=== PATIENT | male | born 1955 | race Two or more races ===

== ENCOUNTER 2018-05-11 13:37 | Inpatient (IN) ==
--- NOTE | 2018-05-11 13:52 | ED ---
HPI General Chief complaint: Fall Stated complaint: Fall Time Seen by Provider: 05/11/18 13:38 History of Present Illness HPI narrative: 62-year-old male presents via EMS for evaluation after a fall. The patient reportedly was standing on a roof when his feet became wrapped in plastic and he fell off of the roof, landing on his back. He remembers falling but there was loss of consciousness afterwards. He reports that he was 20 feet high. Reportedly his GCS was 14 when the fire department arrived however it was 15 when paramedics arrived. The patient is complaining of mild pain in his left lower back. He is otherwise asymptomatic. He denies headache, neck pain, dizziness, nausea, vomiting, chest pain, shortness of breath, abdominal pain, neck pain, pain in the extremities, numbness or tingling or weakness in extremities. Symptoms are mild, aggravated by fall. He is not on any blood thinning medications. He denies any significant past medical history. He has no other complaints at this time. Related Data Home Medications Medication Instructions Recorded Confirmed No Known Home Medications 05/11/18 05/11/18 Allergies Allergy/AdvReac Type Severity Reaction Status Date / Time No Known Allergies Allergy Verified 05/11/18 13:43 Review of Systems ROS: all other systems reviewed are negative PMFSH Medical History Medical History Patient denies medical problems (Acute) Social History Social History Substance History: No History of Abuse Second Hand Smoke Exposure: No Smoking Status: Current every day smoker Tobacco Type: Cigarettes How Often Do You Have a Drink Containing Alcohol: 4 or more times a week Recent Travel in [facility] within the Last 8 Weeks: No Recent Out of Country Travel within the Last 8 Weeks: No Immunization History Tetanus Immunization: Unsure Exam Narrative Exam Narrative: GENERAL: Pleasant well-developed well-nourished male in no acute distress answering all questions appropriately. Cervical collar in place laying on backboard. The patient was logrolled off the backboard using spinal precautions SKIN: Warm and dry. No obvious abrasions or ecchymosis noted. HEAD: Atraumatic. Normocephalic. EYES: Pupils equal and round. No scleral icterus. No injection or drainage. ENT: No nasal bleeding or discharge. Mucous membranes pink and moist. 2 tongue lacerations are noted, one is 2 cm the other is 1.5 cm in length NECK: Trachea midline. No JVD. CARDIOVASCULAR: Regular rate and rhythm. No murmur appreciated. RESPIRATORY: No accessory muscle use. Clear to auscultation. Breath sounds equal bilaterally. GASTROINTESTINAL: Abdomen soft, non-tender, nondistended. Hepatic and splenic margins not palpable. MUSCULOSKELETAL: No obvious deformities. No clubbing. No cyanosis. No edema. There is no reproducible tenderness to palpation along the cervical thoracic or lumbar midline spine. There is no chest wall crepitus. There is no tenderness to palpation of the pelvis. Normal medical records auditor strength bilaterally. NEUROLOGICAL: Awake and alert. No obvious cranial nerve deficits. Motor grossly within normal limits. Normal speech. Procedures Laceration Laceration 1: Site: other (tongue) Size (cm): 2 Description: linear Depth: simple, single layer Anesthetic used: with epi Anesthesia technique:: local infiltration Amount (mL): 2 Pre-repair:: wound explored Skin layer closed with: other (fast absorbing chromic) Size (cm): 5-0 Number of sutures:: 4 Technique:: simple, interrupted Laceration 2: Site: other (tongue) Size (cm): 1.5 Description: linear Depth: simple, single layer Anesthetic used: with epi Anesthesia technique:: local infiltration Amount (mL): 2 Pre-repair:: wound explored Skin layer closed with: other (fast absorbing chromic) Size (cm): 5-0 Number of sutures:: 2 Technique:: simple, interrupted Course Initial Documented Vital Signs Temperature 98.6 F 05/11/18 13:49 Pulse Rate 87 05/11/18 13:49 Respiratory Rate 23 05/11/18 13:49 Blood Pressure 162/93 H 05/11/18 13:49 Pulse Oximetry 95 05/11/18 13:49 Last Documented Vital Signs Temperature 98.6 F 05/11/18 13:49 Pulse Rate 87 05/11/18 13:49 Respiratory Rate 23 05/11/18 13:49 Blood Pressure 162/93 H 05/11/18 13:49 Pulse Oximetry 95 05/11/18 13:51 Medical Decision Making MDM Narrative Medical decision making narrative: 62-year-old male presents after a fall from reportedly 20 feet with only mild pain in his left lower back. No obvious deformities on examination. Given mechanism of injury, CT brain, cervical thoracic lumbar spine, thorax, abdomen and pelvis have been ordered, pelvis x- ray and chest x-ray, i-STAT's ordered. CT the brain reveals mild subarachnoid hemorrhage. Platelet count is incidentally noted to be low at 67, his other lab work is unremarkable. Chest x -ray, pelvis x-ray normal. CT imaging of the cervical spine reveals no acute abnormalities. CT of the thorax and abdomen pelvis revealed no acute abnormalities. The patient remains stable during his hospital stay. His only complaint has been mild lower back pain. At this point in time the plan is to admit him to the trauma service. The tongue lacerations were repaired with fast absorbing chromic, he verbally consented. Tetanus status updated. Medical Screen Exam Complete: Yes Emergency Medical Condition: Yes Differential Diagnosis Differential Diagnosis: Contusion, strain, fracture, sprain, retroperitoneal hematoma, spinal cord injury, concussion Lab Data Result diagrams: 05/11/18 13:50 05/11/18 13:50 Lab Results 05/11/18 05/11/18 05/11/18 Range/Units 13:50 13:50 13:50 WBC 4.8 (4.0-11.0) th/mm3 RBC 4.39 L (4.50-5.90) mil/mm3 Hgb 15.0 (13.0-17.0) gm/dL POC Hgb (Calc) 14.3 (13.0-17.0) g/dL Hct 43.2 (39.0-51.0) % POC Hct 42.0 (39-51.0) % MCV 98.3 (80.0-100.0) fL MCH 34.2 H (27.0-34.0) pg MCHC 34.8 (32.0-36.0) % RDW 12.3 (11.6-17.2) % Plt Count 67 L (150-450) th/mm3 MPV 8.8 (7.0-11.0) fL Prelim Diff (Auto) Slide review pending Neut % (Auto) 75.1 H (16.0-70.0) % Lymph % (Auto) 19.1 (9.0-44.0) % Troup % (Auto) 4.1 (0.0-8.0) % Eos % (Auto) 1.3 (0.0-4.0) % Baso % (Auto) 0.4 (0.0-2.0) % Neut # (Auto) 3.6 (1.8-7.7) th/mm3 Lymph # (Auto) 0.9 L (1.0-4.8) th/mm3 Troup # (Auto) 0.2 (0.0-0.9) th/mm3 Eos # (Auto) 0.1 (0.0-0.4) th/mm3 Baso # (Auto) 0.0 (0.0-0.2) th/mm3 WBC Differential . Diff Scan Auto diff confirmed Differential Comment . PT 10.7 (9.8-11.6) sec INR 1.1 Ratio APTT 26.9 (23.4-31.7) sec POC Sodium 143 (137-144) mmol/L Sodium 143 (136-145) meq/L POC Potassium 3.5 L (3.6-5.0) mmol/L Potassium 3.5 (3.5-5.1) meq/L POC Chloride 104 (102-111) mmol/L Chloride 109 H (98-107) meq/L Carbon Dioxide 25.4 (21.0-32.0) meq/L Anion Gap 9 (5-15) meq/L POC BUN 20 (5-21) mg/dL BUN 20 H (7-18) mg/dL Creatinine 1.07 (0.60-1.30) mg/dL POC Creatinine 0.9 (0.6-1.3) mg/dL Estimated GFR 70 L (>89) mL/min POC Glucose 144 H (68-110) mg/dL Random Glucose 144 H (74-106) mg/dL Calcium 8.6 (8.5-10.1) mg/dL Serum Alcohol Less than 3 (0-5) mg/dL Imaging Data Radiologist's impression: Abdomen/Pelvis CT 05/11/18 13:48 CONCLUSION: No acute findings in the abdomen and pelvis. Cervical Spine CT 05/11/18 13:48 CONCLUSION: No evidence of fracture. Multilevel degenerative findings. Chest CT 05/11/18 13:48 CONCLUSION: No acute findings in the chest. Chest X-Ray 05/11/18 13:48 CONCLUSION: No acute cardiopulmonary disease. Head CT 05/11/18 13:48 CONCLUSION: 1. Mild subarachnoid hemorrhage of the para midline frontal lobes bilaterally. 2. Possible 7 mm meningioma in the high right frontal region. . Lumbar Spine CT 05/11/18 13:48 CONCLUSION: 1. There is moderate thecal sac stenosis L3-4 and bilateral neural foraminal compromise at this level. 2. Neural foraminal compromise right L4-5, bilateral lateral recess compromise at this level and effacement of the anterior CSF space. Pelvis X-Ray 05/11/18 13:48 CONCLUSION: No evidence of fracture. Thoracic Spine CT 05/11/18 13:48 CONCLUSION: Degenerative changes at multiple levels with slight asymmetrical bulging discs left T9-10 without any significant compromise to the exiting nerve roots or the thecal sac. Discharge Plan Discharge Disposition Patient Disposition: 30 Still Patient Discharge Condition Condition: Stable Discharge Details Diagnosis: Traumatic subarachnoid hemorrhage, Thrombocytopenia, Laceration of tongue Physicians Team ED Provider: Mohsen Vargas ED Midlevel Provider: Aaron Brady Primary Care Provider: GILMA, Attending Provider: Paul Jade Other Providers: Carmen Feng ; Hamida Doll ; Dick Funez ; Gely Armenta ; Asif Liang ; Russel Paz ; Paul Jade ; Horacio Mars ; [employer] [facility] Discharge Interventions Interventions: Vital Signs Last Done: 05/11/18 13:49 Status ED Status: Admitted Patient
[2018-05-11 14:18] LABS: Baso % (Auto) 0.4 % (0.0-2.0); Eos # (Auto) 0.1 th/mm3 (0.0-0.4); Eos % (Auto) 1.3 % (0.0-4.0); Hematocrit 43.2 % (39.0-51.0); Lymph # (Auto) 0.9 th/mm3 (1.0-4.8); Lymph % (Auto) 19.1 % (9.0-44.0); Mean Corpuscular HGB Conc 34.8 % (32.0-36.0); Mean Corpuscular Hemoglobin 34.2 pg (27.0-34.0); Mean Corpuscular Volume 98.3 fL (80.0-100.0); Mean Platelet Volume 8.8 fL (7.0-11.0); Mono # (Auto) 0.2 th/mm3 (0.0-0.9); Mono % (Auto) 4.1 % (0.0-8.0); Neut # (Auto) 3.6 th/mm3 (1.8-7.7); Neut % (Auto) 75.1 % (16.0-70.0); Platelet Count 67 th/mm3 (150-450); Red Blood Count 4.39 mil/mm3 (4.50-5.90); Red Cell Distribution Width 12.3 % (11.6-17.2); White Blood Count 4.8 th/mm3 (4.0-11.0)
[2018-05-11 14:27] LABS: Activated Partial Thrombo Time 26.9 sec (23.4-31.7); INR 1.1 Ratio; Prothrombin Time 10.7 sec (9.8-11.6)
--- NOTE | 2018-05-11 14:35 | XR ---
EXAM DATE: 05/11/2018 2:31 PM EST AGE/SEX: 62 years / Male INDICATIONS: Pelvic pain after fall off of roof. CLINICAL DATA: This is the patient's initial encounter. Patient reports that signs and symptoms have been present for 1 day and indicates a pain score of 6/10. MEDICAL/SURGICAL HISTORY: None. None. COMPARISON: No prior exams available for comparison. FINDINGS: Single AP view the pelvis. Bone alignment within normal limits. No evidence of fracture. Hips within normal limits. CONCLUSION: No evidence of fracture. Electronically signed by: Glen Powers MD 05/11/2018 2:34 PM EST
[2018-05-11 14:37] LABS: Anion Gap 9 meq/L (5-15); Blood Urea Nitrogen 20 mg/dL (7-18); Calcium 8.6 mg/dL (8.5-10.1); Carbon Dioxide 25.4 meq/L (21.0-32.0); Chloride 109 meq/L (98-107); Glomerular Filtration Rate 70 mL/min (>89); Glucose,Random 144 mg/dL (74-106); Potassium 3.5 meq/L (3.5-5.1); Sodium 143 meq/L (136-145)
--- NOTE | 2018-05-11 14:38 | XR ---
EXAM DATE: 05/11/2018 2:33 PM EST AGE/SEX: 62 years / Male INDICATIONS: Chest and back pain after fall off of roof. CLINICAL DATA: This is the patient's initial encounter. Patient reports that signs and symptoms have been present for 1 day and indicates a pain score of 6/10. MEDICAL/SURGICAL HISTORY: None. None. COMPARISON: No prior exams available for comparison. FINDINGS: The lungs are clear without infiltrate, nodule, or mass. There is no appreciable pleural effusion for technique. Heart and mediastinum are unremarkable. CONCLUSION: No acute cardiopulmonary disease. Electronically signed by: Rachell Christopher MD 05/11/2018 2:36 PM EST
--- NOTE | 2018-05-11 14:40 | CT ---
EXAM DATE: 05/11/2018 2:32 PM EST AGE/SEX: 62 years / Male INDICATIONS: Fell off roof. Back pain. CLINICAL DATA: This is the patient's initial encounter. Patient reports that signs and symptoms have been present for 1 day and indicates a pain score of 5/10. MEDICAL/SURGICAL HISTORY: None. None. RADIATION DOSE: 46.25 CTDI (mGy) COMPARISON: No prior exams available for comparison. TECHNIQUE: CT of the head without contrast. Using automated exposure control and adjustment of the mA and/or kV according to patient size, radiation dose was kept as low as reasonably achievable to ob tain optimal diagnostic quality images. DICOM format image data is available electronically for revi ew and comparison. FINDINGS: Cerebrum: Small linear areas of hyperdensity in the para midline frontal regions bilaterally indicat ing minimal subarachnoid hemorrhage. No evidence of mass effect or midline shift. 7 mm rounded extra- axial hyperdensity in the high right frontal region. No evidence of acute infarct. Posterior Fossa: The cerebellum and brainstem are intact. The 4th ventricle is midline. The cerebe llopontine angle is unremarkable. Extracranial: Moderate partial opacification of the ethmoid sinuses. Skull: The calvaria is intact. No evidence of skull fracture. CONCLUSION: 1. Mild subarachnoid hemorrhage of the para midline frontal lobes bilaterally. 2. Possible 7 mm meningioma in the high right frontal region. . Electronically signed by: Glen Powers MD 05/11/2018 2:39 PM EST
--- NOTE | 2018-05-11 14:53 | CT ---
EXAM DATE: 05/11/2018 2:43 PM EST AGE/SEX: 62 years / Male INDICATIONS: Fell off roof. Back pain. CLINICAL DATA: This is the patient's initial encounter. Patient reports that signs and symptoms have been present for 1 day and indicates a pain score of 5/10. MEDICAL/SURGICAL HISTORY: None. None. RADIATION DOSE: 19.26 CTDI (mGy) COMPARISON: No prior exams available for comparison. TECHNIQUE: Contiguous axial images were obtained using helical multirow detector technique. The vol umetric data was post-processed with multiplanar reconstruction in oblique axial, sagittal, and coron al planes. Using automated exposure control and adjustment of the mA and/or kV according to patient s ize, radiation dose was kept as low as reasonably achievable to obtain optimal diagnostic quality osbaldo ges. DICOM format image data is available electronically for review and comparison. FINDINGS: Vertebrae: Normal vertebral body height. Alignment: Normal. No subluxation. C2-3: The bony spinal canal is normal in size. No evidence of disc bulge or herniation. The neural foramina are bilaterally patent. C3-4: Bilateral facet arthrosis. Broad-based disc bulge. Central canal diameter within normal limits . Neural foraminal diameters within normal limits. C4-5: Broad-based disc bulge and bilateral facet arthrosis. Central canal diameter within normal blas its. Neural foraminal diameters within normal limits. C5-6: Broad-based disc bulge and bilateral facet arthrosis. Mild left neural foraminal narrowing. Ce ntral canal diameter is minimally narrowed. C6-7: Broad-based disc osteophyte complex. Moderate left neural foraminal narrowing. Central canal d iameter within normal limits. C7-T1: Central canal diameter within normal limits. Neural foraminal diameters within normal limits. CONCLUSION: No evidence of fracture. Multilevel degenerative findings. Electronically signed by: Glen Powers MD 05/11/2018 2:51 PM EST
--- NOTE | 2018-05-11 15:04 | CT ---
EXAM DATE: 05/11/2018 2:46 PM EST AGE/SEX: 62 years / Male INDICATIONS: Fell off roof. Back pain. CLINICAL DATA: This is the patient's initial encounter. Patient reports that signs and symptoms have been present for 1 day and indicates a pain score of 5/10. MEDICAL/SURGICAL HISTORY: None. None. ORAL CONTRAST: No oral contrast ingested. RADIATION DOSE: 10.21 CTDI (mGy) ; Combined studies COMPARISON: No prior exams available for comparison. TECHNIQUE: Multiple contiguous axial images were obtained through the abdomen and pelvis following b olus infusion of 94 ml Visipaque 320 (iodixanol) nonionic water-soluble contrast as a cumulative do se for multiple exams. No oral contrast ingested. Using automated exposure control and adjustment of the mA and/or kV according to patient size, radiation dose was kept as low as reasonably achievable to obtain optimal diagnostic quality images. DICOM format image data is available electronically for review and comparison. FINDINGS: Lower Lungs: Mild atelectasis at the lung bases. Liver: Moderate diffuse hypodensity of the liver indicating hepatic steatosis. No focal mass identifi ed. Gallbladder within normal limits. Spleen: Homogeneous density without enlargement. Pancreas: Unremarkable without mass or calcification. Kidneys: 3 mm nonobstructing calculus in the midpole the right kidney. 3 mm calculus in the upper po le of the right kidney. 1.4 cm cyst extending laterally off of the lower pole of the left kidney. Adrenal Glands: Unremarkable. Aorta: Diffuse atherosclerotic disease and calcification. Diameter within normal limits. Bowel/Mesentery: No evidence of bowel dilatation. No free air or free fluid. Appendix within normal limits. Abdominal Wall: Intact. Retroperitoneum: No evidence of adenopathy in the retrocrural, para-aortic, or deep pelvic regions. Bladder: Contours are smooth. Reproductive Organs: Prostate is enlarged measuring 5.2 cm in greatest transverse dimension. Inguinal: The inguinal region is unremarkable without evidence of adenopathy. Bony Structures: Unremarkable. CONCLUSION: No acute findings in the abdomen and pelvis. Electronically signed by: Glen Powers MD 05/11/2018 3:03 PM EST
--- NOTE | 2018-05-11 15:11 | CT ---
EXAM DATE: 05/11/2018 2:52 PM EST AGE/SEX: 62 years / Male INDICATIONS: Fell off roof. Back pain. CLINICAL DATA: This is the patient's initial encounter. Patient reports that signs and symptoms have been present for 1 day and indicates a pain score of 5/10. MEDICAL/SURGICAL HISTORY: None. None. RADIATION DOSE: 10.21 CTDI (mGy) ; Combined studies COMPARISON: No prior exams available for comparison. TECHNIQUE: Multiple contiguous axial images were obtained through the chest during bolus infusion of 94 ml Visipaque 320 (iodixanol) nonionic water-soluble contrast as a cumulative dose for multiple e xams. Images were obtained in suspended respiration using multiple row detector helical technique. Using automated exposure control and adjustment of the mA and/or kV according to patient size, radia tion dose was kept as low as reasonably achievable to obtain optimal diagnostic quality images. DICO M format image data is available electronically for review and comparison. FINDINGS: Lungs: Bilateral mild dependent atelectasis. Lungs otherwise clear. Mediastinum: Aorta intact. Coronary artery calcification. Pleurae: No evidence of pleural effusion or pneumothorax. Axillae: Unremarkable. Bony Structures: Unremarkable. Miscellaneous: Upper abdomen will be fully described on abdomen CT report. Post Contrast: No abnormal areas of enhancement seen. CONCLUSION: No acute findings in the chest. Electronically signed by: Glen Powers MD 05/11/2018 3:10 PM EST
--- NOTE | 2018-05-11 15:28 | CT ---
EXAM DATE: 05/11/2018 3:13 PM EST AGE/SEX: 62 years / Male INDICATIONS: Fell off roof. Back pain. CLINICAL DATA: This is the patient's initial encounter. Patient reports that signs and symptoms have been present for 1 day and indicates a pain score of 5/10. MEDICAL/SURGICAL HISTORY: None. None. RADIATION DOSE: . CTDI (mGy) ; Reconstructed from previous dataset, no dose COMPARISON: No prior exams available for comparison. TECHNIQUE: Contiguous axial images were acquired with a multirow detector CT scanner after intraveno us administration of 94 ml Visipaque 320 (iodixanol) nonionic water-soluble contrast as a cumulative dose for multiple exams. Multiplanar reconstructions in the sagittal and coronal plane were also pe rformed. Using automated exposure control and adjustment of the mA and/or kV according to patient siz e, radiation dose was kept as low as reasonably achievable to obtain optimal diagnostic quality image s. DICOM format image data is available electronically for review and comparison. FINDINGS: No significant compression deformities, spondylolysis, or spondylolesthesis is seen. There are stones in the right kidney discussed on the CT abdomen. L1-L2: No appreciable compromise to the thecal sac, or the exiting nerve roots is seen. The neural foramina and lateral recesses are patent bilaterally. L2-L3: No appreciable compromise to the thecal sac, or the exiting nerve roots is seen. The neural foramina and lateral recesses are patent bilaterally. Slight bulging disc is present without any significant compromise to the exiting nerve roots or the t hecal sac. L3-L4: Moderate degenerative changes are present in the disc space. There is slight neural foramina compromise bilaterally due to bulging disc and hypertrophic changes. There is moderate overall thecal sac stenosis due to central disc/osteophyte complex and hypertrophic changes. Gas is seen within the disc chronic in nature. L4-5: Moderate degenerative changes are present in the disc space. There is a limbus vertebrae at th is level towards the anterior portion with osteophyte formation as well. Gas is seen within the disc chronic in nature. There is slight neural foramina compromise on the right due to asymmetrical bulging disc and hypertro phic changes. There is anterior extradural impression and effacement of the anterior CSF space due to bulging disc and hypertrophic changes, however overall no significant thecal sac stenosis is seen. There is sligh t bilateral lateral recess compromise due to bulging disc and hypertrophic changes. L5-S1: No appreciable compromise to the thecal sac, or the exiting nerve roots is seen. The neural foramina and lateral recesses are patent bilaterally. Slight bulging disc is present without any significant compromise to the exiting nerve roots or the t hecal sac. Slight bulging disc and hypertrophic changes are seen with indentation on the thecal sac and no signi ficant compromise to the thecal sac or the exiting nerve roots. CONCLUSION: 1. There is moderate thecal sac stenosis L3-4 and bilateral neural foraminal compromise at this leve l. 2. Neural foraminal compromise right L4-5, bilateral lateral recess compromise at this level and eff acement of the anterior CSF space. Electronically signed by: Rachell Christopher MD 05/11/2018 3:27 PM EST
--- NOTE | 2018-05-11 15:33 | CT ---
EXAM DATE: 05/11/2018 3:13 PM EST AGE/SEX: 62 years / Male INDICATIONS: Fell off roof. Back pain. CLINICAL DATA: This is the patient's subsequent encounter. Patient reports that signs and symptoms h ave been present for 1 day and indicates a pain score of 5/10. MEDICAL/SURGICAL HISTORY: None. None. RADIATION DOSE: . CTDI (mGy) ; Reconstructed from previous dataset, no dose COMPARISON: No prior exams available for comparison. TECHNIQUE: Contiguous axial images were acquired using a multirow detector CT scanner after intraven ous administration of 95 ml Visipaque 320 (iodixanol) nonionic water-soluble contrast as a cumulativ e dose for multiple exams. Multiplanar reconstruction in the sagittal and coronal planes was perfor med. Using automated exposure control and adjustment of the mA and/or kV according to patient size, radiation dose was kept as low as reasonably achievable to obtain optimal diagnostic quality images. DICOM format image data is available electronically for review and comparison. FINDINGS: No significant compression deformities are seen. There are stones in the right kidney discussed on th e patient's abdominal CT. Slight to moderate degenerative change is present in the disc spaces at multiple levels worse lower t horacic spine. T1-T2: No appreciable compromise to the thecal sac, spinal cord, or the exiting nerve roots are see n. The neural foramina are grossly patent bilaterally. T2-T3: No appreciable compromise to the thecal sac, spinal cord, or the exiting nerve roots are seen . The neural foramina are grossly patent bilaterally. T3-T4: No appreciable compromise to the thecal sac, spinal cord, or the exiting nerve roots are seen . The neural foramina are grossly patent bilaterally. T4-T5: No appreciable compromise to the thecal sac, spinal cord, or the exiting nerve roots are seen . The neural foramina are grossly patent bilaterally. T5-T6: No appreciable compromise to the thecal sac, spinal cord, or the exiting nerve roots are seen . The neural foramina are grossly patent bilaterally. T6-T7: No appreciable compromise to the thecal sac, spinal cord, or the exiting nerve roots are seen . The neural foramina are grossly patent bilaterally. T7-T8: No appreciable compromise to the thecal sac, spinal cord, or the exiting nerve roots are seen . The neural foramina are grossly patent bilaterally. T8-T9: No appreciable compromise to the thecal sac, spinal cord, or the exiting nerve roots are seen . The neural foramina are grossly patent bilaterally. T9-T10: No appreciable compromise to the thecal sac, spinal cord, or the exiting nerve roots are see n. The neural foramina are grossly patent bilaterally. Slight left-sided disc bulge is present with out any significant compromise to the exiting nerve roots or the thecal sac. T10-T11: No appreciable compromise to the thecal sac, spinal cord, or the exiting nerve roots are se en. The neural foramina are grossly patent bilaterally. T11-T12: No appreciable compromise to the thecal sac, spinal cord, or the exiting nerve roots are se en. The neural foramina are grossly patent bilaterally. T12-L1: No appreciable compromise to the thecal sac, spinal cord, or the exiting nerve roots are see n. The neural foramina are grossly patent bilaterally. CONCLUSION: Degenerative changes at multiple levels with slight asymmetrical bulging discs left T9-1 0 without any significant compromise to the exiting nerve roots or the thecal sac. Electronically signed by: Rachell Christopher MD 05/11/2018 3:32 PM EST
[2018-05-11] MEDS ORDERED: Acetaminophen 325 MG Tablet PO PRN (15:37)
[2018-05-11] MEDS ORDERED: Morphine Sulfate Inj 2 MG/ML Vial IV.PUSH PRN (15:45)
[2018-05-11] MEDS ORDERED: Morphine Inj 4 MG/ML Vial IV.PUSH ONE (15:46)
[2018-05-11] MEDS ORDERED: Tetanus/Diphtheria Toxoid Adult Vaccine Inj 0.5 ML Vial IM ONE (15:49)
[2018-05-11] MEDS ORDERED: Lidocaine 1%/Epinephrine 1:100,000 Inj 50 ML Vial INFILTRATN ONE (15:49)
[2018-05-11] MEDS ORDERED: levETIRAcetam 500mg/100mL Inj 100 ML IV.SIG SCH (16:00)
--- NOTE | 2018-05-11 16:42 | P.CONNS ---
History of Present Illness Service: Neurosurgery Consult date: 05/11/18 Requesting Physician: Paul Jade Reason for Consult: Trauma Primary Care Provider: UNKNOWN Chief Complaint: Status post fall, generalized pain History of Present Illness: This is a 62-year-old male brought to [facility] via EMS after a severe fall. The patient reportedly was standing on a roof when his feet became wrapped in plastic and he fell off of the roof, landing on his back. He remembers falling but there was loss of consciousness afterwards. No seizure activity reported. There was no tongue biting. There was no incontinence of stool or urine. He reports that he fell 20 feet high. His GCS was 14 when the fire department arrived however it was 15 when paramedics arrived. The patient is complaining of mild pain in his left lower back. He is otherwise asymptomatic. He denies headache, neck pain, dizziness, nausea, vomiting, chest pain, shortness of breath, abdominal pain, neck pain, pain in the extremities, numbness or tingling or weakness in extremities. his family history was reviewed and was noncontributory to this admission Review of Systems All other systems reviewed negative except as stated in HPI PMFSH - History History Provided By: Patient - Medical History Medical History: Medical History (Last Reviewed 05/11/18 @ 18:14 by Moris High MD) Patient denies medical problems - Tobacco History Second Hand Smoke Exposure: No Tobacco Use In Past 30 Days: Yes Smoking Status: Current every day smoker Tobacco Type: Cigarettes - Alcohol History How Often Do You Have a Drink Containing Alcohol: 4 or more times a week - Substance Use History Substance History: No History of Abuse - Travel History Recent Travel in the [place] Within the Last 8 Weeks: No Recent Travel Out of the Country Within the Last 8 Weeks: No - Immunization History Tetanus Immunization: Unsure Medications and Allergies Active Medications: Active Medications Acetaminophen (Tylenol) 650 mg PO Q6H PRN PRN Reason: TEMPERATURE > 102 F Hydrocodone Bitart/Acetaminophen ([place] 5/325) 1 tab PO Q4H PRN PRN Reason: Pain 1-5 Hydrocodone Bitart/Acetaminophen ([place] 7.5/325) 1 tab PO Q4H PRN PRN Reason: Pain 6-10 Al Hydroxide/Mg Hydroxide (Milk Of Magnesia Liq) 30 ml PO BID ANGELO Bacitracin (Baciguent Oint) 1 applicatio TOPICAL BID ANGELO Chlorhexidine Gluconate (Chlorhexidine 2% Cloth) 3 pack TOPICAL DAILY@0400 ANGELO Stop: 05/17/18 03:59 Chlorhexidine Gluconate (Chlorhexidine 2% Cloth) 3 pack TOPICAL DAILY@0400 PRN PRN Reason: Extra cloth needed Stop: 05/17/18 03:59 Docusate Sodium (Colace) 100 mg PO BID ANGELO Enalaprilat (Vasotec Inj) 1.25 mg IV.PUSH Q8H PRN PRN Reason: Blood pressure > 180/95 Levetiracetam 500 mg/ Sodium (Chloride) 105 mls @ 400 mls/hr IV.SIG Q12H ANGELO Morphine Sulfate (Morphine Inj) 2 mg IV.PUSH Q3H PRN PRN Reason: BREAKTHROUGH PAIN Ondansetron HCl (Zofran Inj) 4 mg IV.PUSH Q6H PRN PRN Reason: NAUSEA OR VOMITING Pantoprazole Sodium (Protonix Inj) 40 mg IV.PUSH Q24H ANGELO Sodium Chloride (Ns Flush) 2 ml IV.FLUSH PRN PRN PRN Reason: FLUSH AFTER USING IV ACCESS Sodium Chloride (Ns Flush) 2 ml IV.FLUSH UNSCH PRN PRN Reason: FLUSH AFTER USING IV ACCESS Allergies Allergy/AdvReac Type Severity Reaction Status Date / Time No Known Allergies Allergy Verified 05/11/18 13:43 Home Medications Medication Instructions Recorded Confirmed Type No Known Home Medications 05/11/18 05/11/18 History Exam Vital signs: Vital Signs 05/11/18 13:49 05/11/18 13:51 Temperature 98.6 F Pulse Rate 87 Respiratory Rate 23 Blood Pressure 162/93 H Pulse Oximetry 95 95 Intake & Output 05/10/18 05/11/18 05/11/18 18:59 06:59 18:59 Weight 68.492 kg Narrative: The patient is alert, awake. Comfortable, in no acute distress. Speech is fluent. Cranial nerve examination: pupils to be equal, round and reactive to light. Extra-ocular movements are intact. Facial motor and sensory function are normal and symmetrical. Gross hearing appears intact. Sternocleidomastoid and trapezius muscles are symmetrical. Other cranial nerves are intact. Neck is soft and supple with a good range of motion without pain. Muscle strength is normal in all muscle groups of both upper and lower extremities. Sensory examination is intact to light touch and pin prick in both the upper and lower extremities. Deep tendon reflexes are symmetrical in both upper and lower extremities. There is a bilateral plantar flexion response. Cerebellar examination is unremarkable, without deficits. Lungs are clear Heart regular rhythm is regular rate Skin warm and dry Results - Laboratory Findings CBC and BMP: 05/11/18 13:50 05/11/18 13:50 Abnormal lab findings: Abnormal Labs 05/11/18 05/11/18 13:50 13:50 RBC 4.39 L MCH 34.2 H Plt Count 67 L Neut % (Auto) 75.1 H Lymph # (Auto) 0.9 L POC Potassium 3.5 L Chloride 109 H BUN 20 H Estimated GFR 70 L POC Glucose 144 H Random Glucose 144 H Assessment and Plan - Plan I have reviewed the clinical and radiological findings Abdomen/Pelvis CT 05/11/18 13:48 CONCLUSION: No acute findings in the abdomen and pelvis. Cervical Spine CT 05/11/18 13:48 CONCLUSION: No evidence of fracture. Multilevel degenerative findings. Chest CT 05/11/18 13:48 CONCLUSION: No acute findings in the chest. Chest X-Ray 05/11/18 13:48 CONCLUSION: No acute cardiopulmonary disease. Head CT 05/11/18 13:48 CONCLUSION: 1. Mild subarachnoid hemorrhage of the para midline frontal lobes bilaterally. 2. Possible 7 mm meningioma in the high right frontal region. . Lumbar Spine CT 05/11/18 13:48 CONCLUSION: 1. There is moderate thecal sac stenosis L3-4 and bilateral neural foraminal compromise at this level. 2. Neural foraminal compromise right L4-5, bilateral lateral recess compromise at this level and effacement of the anterior CSF space. Pelvis X-Ray 05/11/18 13:48 CONCLUSION: No evidence of fracture. Thoracic Spine CT 05/11/18 13:48 CONCLUSION: Degenerative changes at multiple levels with slight asymmetrical bulging discs left T9-10 without any significant compromise to the exiting nerve roots or the thecal sac. Neuro: neuro checks in a serial fashion. Traumatic SAH. Follow up CT in AM Pulmonary: aggressive pulmonary toilette, nasotracheal suction, and breathing treatments with nebulizers. Tongue laceration. repaired in the emergency room Thrombocytopenia: Monitor and transfuse platelets as necessary Daily PT and OT Lumbar spondylosis and stenosis. non surgical management Renal: Continue to monitor closely urine output, BUN and creatinine Endocrine: Continue to Monitor serial Acu checks and SSI as needed in detail ID monitor for signs of infection Protonix for stress ulcer prophylaxis Karl hose and SCD's for DVT prophylaxis Further recommendations will be provided depending on the patient's clinical evaluation and follow up studies.
[2018-05-11] MEDS: Pantoprazole Inj 40 MG Vial IV.PUSH SCH (17:21)
[2018-05-11] MEDS: Docusate Sodium 100 MG Capsule PO SCH (20:37)
[2018-05-12] MEDS: Chlorhexidine Gluconate 2% 1 Pack (2 Cloths) TOPICAL SCH (03:44)
[2018-05-12] MEDS ORDERED: Chlorhexidine Gluconate 2% 1 Pack (2 Cloths) TOPICAL PRN (04:00)
[2018-05-12 05:11] LABS: Baso % (Auto) 0.3 % (0.0-2.0); Eos % (Auto) 0.1 % (0.0-4.0); Hematocrit 42.6 % (39.0-51.0); Lymph # (Auto) 1.1 th/mm3 (1.0-4.8); Lymph % (Auto) 13.4 % (9.0-44.0); Mean Corpuscular HGB Conc 35.3 % (32.0-36.0); Mean Corpuscular Hemoglobin 33.8 pg (27.0-34.0); Mean Corpuscular Volume 95.8 fL (80.0-100.0); Mean Platelet Volume 9.2 fL (7.0-11.0); Mono # (Auto) 0.6 th/mm3 (0.0-0.9); Mono % (Auto) 6.9 % (0.0-8.0); Neut # (Auto) 6.6 th/mm3 (1.8-7.7); Neut % (Auto) 79.3 % (16.0-70.0); Platelet Count 70 th/mm3 (150-450); Red Blood Count 4.45 mil/mm3 (4.50-5.90); Red Cell Distribution Width 12.5 % (11.6-17.2); White Blood Count 8.4 th/mm3 (4.0-11.0)
[2018-05-12 05:41] LABS: Albumin 3.4 g/dL (3.4-5.0); Anion Gap 8 meq/L (5-15); Aspartate Aminotransferase 111 U/L (15-37); Blood Urea Nitrogen 18 mg/dL (7-18); Calcium 8.4 mg/dL (8.5-10.1); Carbon Dioxide 28.2 meq/L (21.0-32.0); Chloride 106 meq/L (98-107); Glomerular Filtration Rate 75 mL/min (>89); Glucose,Random 133 mg/dL (74-106); Potassium 3.9 meq/L (3.5-5.1); Sodium 142 meq/L (136-145)
[2018-05-12 05:42] LABS: Alanine Aminotransferase 128 U/L (12-78)
[2018-05-12 05:44] LABS: Alkaline Phosphatase 106 U/L (45-117)
--- NOTE | 2018-05-12 07:58 | P.NPEVAL ---
Patient History - Record/History Review Reason for Referral: The patient is a 62 year old right handed man status post complicated mild traumatic brain injury secondary to a fall sustained on 05/11/2018. The patient fell off of a roof, landing on his back. There was positive LOC with GCS of [address] showed mild SAH bilateral frontal lobes. He is referred for baseline neurobehavioral status examination per trauma protocol to assess cognitive, behavioral and emotional aspects of the injury and to provide treatment recommendations. [facility] - History History Provided By: Patient - Medical History Medical History: Medical History (Last Reviewed 05/11/18 @ 18:14 by Moris High MD) Patient denies medical problems - Tobacco History Second Hand Smoke Exposure: No Tobacco Use In Past 30 Days: Yes Smoking Status: Current every day smoker Tobacco Type: Cigarettes - Alcohol History How Often Do You Have a Drink Containing Alcohol: 4 or more times a week - Substance Use History Substance History: No History of Abuse - Travel History Recent Travel in the [place] Within the Last 8 Weeks: No Recent Travel Out of the Country Within the Last 8 Weeks: No - Immunization History Tetanus Immunization: Unsure Medications Active Medications Acetaminophen (Tylenol) 650 mg PO Q6H PRN PRN Reason: TEMPERATURE > 102 F Hydrocodone Bitart/Acetaminophen ([place] 5/325) 1 tab PO Q4H PRN PRN Reason: Pain 1-5 Hydrocodone Bitart/Acetaminophen ([place] 7.5/325) 1 tab PO Q4H PRN PRN Reason: Pain 6-10 Last Admin: 05/12/18 03:54 Dose: 1 tab Al Hydroxide/Mg Hydroxide (Milk Of Magnmarilou Liq) 30 ml PO BID [facility] Last Admin: 05/11/18 22:43 Dose: Not Given Bacitracin (Baciguent Oint) 1 applicatio TOPICAL BID [facility] Last Admin: 05/11/18 23:50 Dose: Not Given Chlorhexidine Gluconate (Chlorhexidine 2% Cloth) 3 pack TOPICAL DAILY@0400 [facility] Stop: 05/17/18 03:59 Last Admin: 05/12/18 03:44 Dose: 3 pack Chlorhexidine Gluconate (Chlorhexidine 2% Cloth) 3 pack TOPICAL DAILY@0400 PRN PRN Reason: Extra cloth needed Stop: 05/17/18 03:59 Docusate Sodium (Colace) 100 mg PO BID [facility] Last Admin: 05/11/18 20:37 Dose: 100 mg Enalaprilat (Vasotec Inj) 1.25 mg IV.PUSH Q8H PRN PRN Reason: Blood pressure > 180/95 Last Admin: 05/11/18 18:15 Dose: 1.25 mg Levetiracetam 500 mg/ Sodium (Chloride) 105 mls @ 400 mls/hr IV.SIG Q12H ANGELO Last Infusion: 05/12/18 04:00 Dose: Infused Morphine Sulfate (Morphine Inj) 2 mg IV.PUSH Q3H PRN PRN Reason: BREAKTHROUGH PAIN Ondansetron HCl (Zofran Inj) 4 mg IV.PUSH Q6H PRN PRN Reason: NAUSEA OR VOMITING Pantoprazole Sodium (Protonix Inj) 40 mg IV.PUSH Q24H ANGELO Last Admin: 05/11/18 17:21 Dose: 40 mg Sodium Chloride (Ns Flush) 2 ml IV.FLUSH PRN PRN PRN Reason: FLUSH AFTER USING IV ACCESS Sodium Chloride (Ns Flush) 2 ml IV.FLUSH UNSCH PRN PRN Reason: FLUSH AFTER USING IV ACCESS Mental Status Assessment - Mental Status Orientation: oriented to: Self, Place, Time, Situation Mental Status: WFL: Thought processing, Language/interactions, Attention, Learning/memory, Problem-solving, Visuospatial/construction, Self-regulation, Other Absent: Hallucinations, Delusions Adjustment/Coping Assessment - Adjustment/Coping Adjustment/Coping: None: Awareness, Insight - Observation In terms of emotional functioning, the patient demonstrated normal adjustment. This patient demonstrated no signs of agitation, impulsivity or disinhibition, nor was there remarkable evidence of a formal thought disorder or psychosis. There was no evidence of depression or anxiety. Thought content was free from suicidal, homicidal or paranoid ideation, and thought processes were logical and goal-directed. The patients mood was euthymic, and his affect was stable and appropriate. The patient appears to possess adequate insight and awareness into their situation and within the limits of this brief evaluation, adequate judgment. Behavior - Behavior Treatment Engagement: Average - Observation Behaviorally, the patient demonstrated no signs of agitation, impulsivity or disinhibition. There was no remarkable evidence of a formal thought disorder or psychosis. - Goals LTG Status: Deferred STG Status: Deferred - Team Members Team Members: Neuropsychologist Diagnosis/Discharge Plan - Diagnosis (1) Mild neurocognitive disorder due to traumatic brain injury Status: Acute Impression: 62 year old male s/p complicated mild TBI 2T fall on 05/11/2018. Disinhibition Score: 14.00 Aggression Score: 14.00 Lability Score: 14.00 Agitated Behavior Total Score: 14 Maximizing Acute Care Outcome: It is recommended that the patient be monitored for emergent behavioral impulsivity as the medical condition evolves. This patients neuropathological challenges may limit rehabilitation potential going forward, and these challenges will require specialized therapeutic skills to maximize outcome. At this point in the recovery process, the patient does have cognitive capacity as the patient is able to understand a situation and its likely consequences, and he is able to manipulate information rationally. Cognitive capacity will be assessed throughout the recovery process. - Discharge Planning Anticipated Problems: Ongoing areas of concern will include behavioral impulsivity, lack of insight and judgment, which is expected to improve with time and treatment. Treatment Plan: This clinician will continue to follow with you throughout the course of this patients critical care treatment, and I will be available to meet with the patients family/support system to facilitate their understanding and the ongoing care of their family member. The goals of neuropsychological intervention shall be both educational and supportive to the family/support system as is deemed clinically appropriate. Thank you for the opportunity to assist in this patients care. Miguel Torres, Ph.D., ABPP Board Certified in Clinical Neuropsychology [place] [employer] [place] Licensed Psychologist #[id number]
[2018-05-12] MEDS: Docusate Sodium 100 MG Capsule PO SCH ×2 (09:50→20:42)
--- NOTE | 2018-05-12 10:12 | P.PNNS ---
Physical Exam Vital signs: Vital Signs 05/11/18 13:49 05/11/18 13:51 05/11/18 17:40 Temperature 98.6 F Pulse Rate 87 94 H Respiratory Rate 23 21 Blood Pressure 162/93 H 169/104 H Pulse Oximetry 95 95 99 05/11/18 18:01 05/11/18 18:02 05/11/18 18:06 Temperature 99 F Pulse Rate 94 H Respiratory Rate Blood Pressure 201/118 H 207/108 H Pulse Oximetry 95 96 05/11/18 18:19 05/11/18 18:34 05/11/18 18:49 Temperature Pulse Rate 95 H 91 H 97 H Respiratory Rate 28 H 29 H 36 H Blood Pressure 204/111 H 186/118 H 198/115 H Pulse Oximetry 96 95 96 05/11/18 19:00 05/11/18 19:04 05/11/18 19:19 Temperature Pulse Rate 100 H 85 92 H Respiratory Rate 43 H 22 32 H Blood Pressure 171/97 H 171/100 H Pulse Oximetry 99 94 L 05/11/18 19:34 05/11/18 19:39 05/11/18 19:42 Temperature Pulse Rate 92 H 92 H 87 Respiratory Rate 28 H 21 21 Blood Pressure 179/106 H 192/102 H 175/99 H Pulse Oximetry 96 93 L 95 05/11/18 20:00 05/11/18 20:14 05/11/18 20:41 Temperature 97.9 F Pulse Rate 93 H 91 H 107 H Respiratory Rate 21 20 21 Blood Pressure 168/88 H 179/103 H 138/77 Pulse Oximetry 94 L 94 L 93 L 05/11/18 21:00 05/11/18 22:00 05/11/18 23:00 Temperature Pulse Rate 102 H 94 H 97 H Respiratory Rate 21 22 21 Blood Pressure 127/74 118/70 130/70 Pulse Oximetry 93 L 96 100 05/11/18 23:12 05/11/18 23:47 05/12/18 00:00 Temperature 99.0 F Pulse Rate 90 Respiratory Rate 15 22 Blood Pressure 128/80 Pulse Oximetry 96 96 05/12/18 01:00 05/12/18 02:00 05/12/18 03:00 Temperature Pulse Rate 91 H 84 82 Respiratory Rate 22 17 17 Blood Pressure 131/77 126/78 119/84 Pulse Oximetry 96 97 98 05/12/18 04:00 05/12/18 05:00 05/12/18 06:00 Temperature 99.1 F Pulse Rate 89 79 79 Respiratory Rate 15 17 14 Blood Pressure 154/84 H 137/83 133/78 Pulse Oximetry 98 99 98 05/12/18 07:00 05/12/18 08:00 05/12/18 09:00 Temperature 99.4 F Pulse Rate 79 89 86 Respiratory Rate Blood Pressure 131/80 159/99 H 178/105 H Pulse Oximetry 98 05/12/18 09:48 Temperature Pulse Rate 89 Respiratory Rate Blood Pressure 162/82 H Pulse Oximetry Intake & Output 05/11/18 05/12/18 05/12/18 18:59 06:59 18:59 Intake Total 105 / 105 305 / 305 Output Total 500 / 500 Balance 105 / 105 -195 / -195 Weight 68.492 kg 66.2 kg Intake: IV 105 / 105 105 / 105 Keppra Inj 500 MG In NS Inj 100 105 / 105 105 / 105 ML @ 400 mls/hr IV.SIG Q12H ANGELO Rx#:[id number] Oral 200 / 200 Output: Urine 500 / 500 Other: Weight On Admission 66.2 kg Narrative: Alert, oriented, conversing well, dysarthric speech due to injury to tongue pupils equal moves all four extremities well symmetric Assessment and Plan - Plan 62 y/o male fall off second story roof Head CT 05/11/18 13:48 CONCLUSION: 1. Mild subarachnoid hemorrhage of the para midline frontal lobes bilaterally. 2. Possible 7 mm meningioma in the high right frontal region. Cervical Spine CT 05/11/18 13:48 CONCLUSION: No evidence of fracture. Multilevel degenerative findings. Lumbar Spine CT 05/11/18 13:48 CONCLUSION: 1. There is moderate thecal sac stenosis L3-4 and bilateral neural foraminal compromise at this level. 2. Neural foraminal compromise right L4-5, bilateral lateral recess compromise at this level and effacement of the anterior CSF space. Thoracic Spine CT 05/11/18 13:48 CONCLUSION: Degenerative changes at multiple levels with slight asymmetrical bulging discs left T9-10 without any significant compromise to the exiting nerve roots or the thecal sac. Neuro: neuro checks in a serial fashion. Traumatic SAH - nonoperative management. stable exam. f/u CT Brain today. Tongue laceration. repaired in the emergency room Thrombocytopenia: Monitor and transfuse platelets as necessary Daily PT and OT Lumbar spondylosis and stenosis. non surgical management Protonix for stress ulcer prophylaxis Karl hose and SCD's for DVT prophylaxis Further recommendations will be provided depending on the patient's clinical evaluation and follow up studies.
--- NOTE | 2018-05-12 10:55 | CT ---
EXAM DATE: 05/12/2018 10:47 AM EST AGE/SEX: 62 years / Male INDICATIONS: Follow up for intracranial hemorrhage. CLINICAL DATA: This is the patient's initial encounter. Patient reports that signs and symptoms have been present for 2 days and indicates a pain score of 2/10. MEDICAL/SURGICAL HISTORY: . Intracranial hemorrhage. None. RADIATION DOSE: 33.88 CTDI (mGy) COMPARISON: [facility] [place], CT HEAD W/O CONTRAST, 05/11/2018. . TECHNIQUE: CT of the head without contrast. Using automated exposure control and adjustment of the mA and/or kV according to patient size, radiation dose was kept as low as reasonably achievable to ob tain optimal diagnostic quality images. DICOM format image data is available electronically for revi ew and comparison. FINDINGS: Cerebrum: Minimal hemorrhage identified along the cortical surface of the left frontal lobe in the p arasagittal region is no longer period. Cerebral hemispheres otherwise appear unremarkable. Hyperdens e nodule in the right frontal region is stable. There are no findings characteristic of an evolving i nfarct. Posterior Fossa: The cerebellum and brainstem are intact. The 4th ventricle is midline. The cerebe llopontine angle is unremarkable. Extracranial: The visualized portion of the orbits is intact. Skull: The calvaria is intact. No evidence of skull fracture. CONCLUSION: 1. Resolution of minimal hemorrhage in the parasagittal region of the left frontal lobe. 2. Otherwise stable exam without evidence of acute infarct, edema or mass effect. . Electronically signed by: Curtis Carson MD 05/12/2018 10:54 AM EST
--- NOTE | 2018-05-12 11:44 | P.PNCC ---
Subjective Brief History: [place]: This is a 62-year old male who sustained a fall. He fell off a roof. Approximately 20 feet high. He landed on his back. Positive LOC. GCS 14, but improved to 15. INJURIES: Bilateral SAH Tongue lac (sutures) L3-4 and bilateral neural foraminal compromise Neural foraminal compromise right L4-5 bilateral lateral recess compromise L4-L5 w/ effacement of the anterior CSF space. *Meningioma (7mm) high right frontal PMHx: Smoker 24 Hour Review/Hospital Course: 05/12/2018 Patient sitting up in bed. No distress noted. Patient offers no complaints. Patient states he has pain, "just my tongue." Plan is for repeat CT brain today. Objective Vital Signs / I&O: Vital Signs 05/11/18 13:49 05/11/18 13:51 05/11/18 17:40 Temperature 98.6 F Pulse Rate 87 94 H Respiratory Rate 23 21 Blood Pressure 162/93 H 169/104 H Pulse Oximetry 95 95 99 05/11/18 18:01 05/11/18 18:02 05/11/18 18:06 Temperature 99 F Pulse Rate 94 H Respiratory Rate Blood Pressure 201/118 H 207/108 H Pulse Oximetry 95 96 05/11/18 18:19 05/11/18 18:34 05/11/18 18:49 Temperature Pulse Rate 95 H 91 H 97 H Respiratory Rate 28 H 29 H 36 H Blood Pressure 204/111 H 186/118 H 198/115 H Pulse Oximetry 96 95 96 05/11/18 19:00 05/11/18 19:04 05/11/18 19:19 Temperature Pulse Rate 100 H 85 92 H Respiratory Rate 43 H 22 32 H Blood Pressure 171/97 H 171/100 H Pulse Oximetry 99 94 L 05/11/18 19:34 05/11/18 19:39 05/11/18 19:42 Temperature Pulse Rate 92 H 92 H 87 Respiratory Rate 28 H 21 21 Blood Pressure 179/106 H 192/102 H 175/99 H Pulse Oximetry 96 93 L 95 05/11/18 20:00 05/11/18 20:14 05/11/18 20:41 Temperature 97.9 F Pulse Rate 93 H 91 H 107 H Respiratory Rate 21 20 21 Blood Pressure 168/88 H 179/103 H 138/77 Pulse Oximetry 94 L 94 L 93 L 11/08/18 21:00 05/11/18 22:00 05/11/18 23:00 Temperature Pulse Rate 102 H 94 H 97 H Respiratory Rate 21 22 21 Blood Pressure 127/74 118/70 130/70 Pulse Oximetry 93 L 96 100 05/11/18 23:12 05/11/18 23:47 05/12/18 00:00 Temperature 99.0 F Pulse Rate 90 Respiratory Rate 15 22 Blood Pressure 128/80 Pulse Oximetry 96 96 05/12/18 01:00 05/12/18 02:00 05/12/18 03:00 Temperature Pulse Rate 91 H 84 82 Respiratory Rate 22 17 17 Blood Pressure 131/77 126/78 119/84 Pulse Oximetry 96 97 98 05/12/18 04:00 05/12/18 05:00 05/12/18 06:00 Temperature 99.1 F Pulse Rate 89 79 79 Respiratory Rate 15 17 14 Blood Pressure 154/84 H 137/83 133/78 Pulse Oximetry 98 99 98 05/12/18 07:00 05/12/18 08:00 05/12/18 09:00 Temperature 99.4 F Pulse Rate 79 89 86 Respiratory Rate Blood Pressure 131/80 159/99 H 178/105 H Pulse Oximetry 98 99 05/12/18 09:48 05/12/18 10:00 Temperature Pulse Rate 89 83 Respiratory Rate Blood Pressure 162/82 H 155/80 H Pulse Oximetry 93 L Intake & Output 05/11/18 05/12/18 05/12/18 18:59 06:59 18:59 Intake Total 105 / 105 305 / 305 Output Total 500 / 500 Balance 105 / 105 -195 / -195 Weight 68.492 kg 66.2 kg Intake: IV 105 / 105 105 / 105 Keppra Inj 500 MG In NS Inj 100 105 / 105 105 / 105 ML @ 400 mls/hr IV.SIG Q12H [facility] Rx#:[id number] Oral 200 / 200 Output: Urine 500 / 500 Other: Weight On Admission 66.2 kg Result Diagrams: 05/12/18 04:26 05/12/18 04:26 Imaging: Impressions Abdomen/Pelvis CT 05/11/18 13:48 CONCLUSION: No acute findings in the abdomen and pelvis. Cervical Spine CT 05/11/18 13:48 CONCLUSION: No evidence of fracture. Multilevel degenerative findings. Chest CT 05/11/18 13:48 CONCLUSION: No acute findings in the chest. Chest X-Ray 05/11/18 13:48 CONCLUSION: No acute cardiopulmonary disease. Head CT 05/11/18 13:48 CONCLUSION: 1. Mild subarachnoid hemorrhage of the para midline frontal lobes bilaterally. 2. Possible 7 mm meningioma in the high right frontal region. . Lumbar Spine CT 05/11/18 13:48 CONCLUSION: 1. There is moderate thecal sac stenosis L3-4 and bilateral neural foraminal compromise at this level. 2. Neural foraminal compromise right L4-5, bilateral lateral recess compromise at this level and effacement of the anterior CSF space. Pelvis X-Ray 05/11/18 13:48 CONCLUSION: No evidence of fracture. Thoracic Spine CT 05/11/18 13:48 CONCLUSION: Degenerative changes at multiple levels with slight asymmetrical bulging discs left T9-10 without any significant compromise to the exiting nerve roots or the thecal sac. Head CT 05/12/18 08:00 CONCLUSION: 1. Resolution of minimal hemorrhage in the parasagittal region of the left frontal lobe. 2. Otherwise stable exam without evidence of acute infarct, edema or mass effect. . Disinhibition Score: 14.00 Aggression Score: 14.00 Lability Score: 14.00 Agitated Behavior Total Score: 14 Objective Remarks: GENERAL: This is a 62-year-old male sitting up in bed. No distress noted. SKIN: Warm and dry. HEAD: Atraumatic. Normocephalic. EYES: PERRLA ENT: No nasal bleeding or discharge. Mucous membranes pink and moist. NECK: Trachea midline. No JVD. CARDIOVASCULAR: Regular rate and rhythm. RESPIRATORY: No accessory muscle use. Lungs are clear to auscultation. Breath sounds equal bilaterally. No distress or dyspnea. GASTROINTESTINAL: BS + x 4 quads. Abdomen soft, non-tender, nondistended. MUSCULOSKELETAL: Extremities without cyanosis, or edema. + peripheral pulses x 4 extremities. Warm with good capillary refill and sensation. MAEW. NEUROLOGICAL: Awake and alert x 3. Normal speech and pattern. Assessment and Plan - Assessment (1) Traumatic subarachnoid hemorrhage Code(s): S06.6X9A - Traumatic subarachnoid hemorrhage with loss of consciousness of unspecified duration, initial encounter Status: Acute (2) Thrombocytopenia Code(s): D69.6 - Thrombocytopenia, unspecified Status: Acute (3) Laceration of tongue Code(s): S01.512A - Laceration without foreign body of oral cavity, initial encounter Status: Acute (4) Mild neurocognitive disorder due to traumatic brain injury Code(s): S06.9X9S - Unspecified intracranial injury with loss of consciousness of unspecified duration, sequela; G31.84 - Mild cognitive impairment, so stated Status: Acute Plan: [place]: This is a 62-year-old male who sustained a fall. He fell off a roof approximately 20 feet high. Landed on his back. Positive LOC. GCS 14, but improved to 15. INJURIES: Bilateral SAH Tongue lac (sutures) L3-4 and bilateral neural foraminal compromise Neural foraminal compromise right L4-5 bilateral lateral recess compromise L4-L5 w/ effacement of the anterior CSF space. *Meningioma (7mm) high right frontal PMHx: Smoker Procedures: Consults: Neurosurgery. Neuropsych. Case management. Repeat CT brain completed today shows resolution of minimal hemorrhage. Stable scan. Diet: Regular diet - Mechanical soft (for comfort and ease due to tongue laceration.) Tolerating po diet. Encourage good po intake with each meal. Pulmonary: Encourage good pulmonary toileting. IS at bedside and pt encouraged to use. Rationale for use explained to patient, and verbalized understanding. PAIN Management: [place] 5-7.5 mg q 4h. Morphine 2 mg q 3h for breakthrough pain. Activity: OOB. PT and OT ordered. GI prophylaxis: Protonix 40 mg IV Bowel regimen: Colace. MOM. LBM: o DVT prophylaxis: Mechanical VTE with SCDs. Chemical management not indicated at this time due to SAH. DC Planning: Case management consulted for assistance with final discharge disposition. Emotional support provided to patient and family at bedside and plan of care discussed. Discussed with RN at bedside during trauma rounds. Discussed pt condition and plan of care with collaborating trauma surgeon. Patient is hemodynamically stable, and follow-up CT brain is stable, therefore he may transfer to the med/surg floor. The trauma team will round each day, and evaluate plan of care on a daily basis. Bilateral SAH L3-4 and bilateral neural foraminal compromise Neural foraminal compromise right L4-5 bilateral lateral recess compromise L4-L5 w/ effacement of the anterior CSF space. *Meningioma (7mm) high right frontal Neurosurgery consulted and assisting in management and care Supportive care 05/12: CT brain shows resolution of minimal hemorrhage. Stable. [facility] Serial neuro checks CT brain for any change in neurological status Pain management Encourage out of bed PT and OT ordered Bowel regimen SCD's for DVT prophylaxis Neuropsych consulted and assisting in management and care Tongue lac (sutures) Supportive care Maintain good oral care Mechanical soft diet for comfort and ease Pain management Attestation: The exam, history, and the medical decision-making described in the above note were completed with the assistance of the mid-level provider. I reviewed and agree with the findings presented. I attest that I had a [id number] encounter with the patient on the same day, and personally performed and documented my assessment and findings in the medical record. (1) Traumatic subarachnoid hemorrhage Qualifiers: Encounter type: initial encounter Loss of consciousness presence/duration: with LOC of unspecified duration Qualified Code(s): S06.6X9A - Traumatic subarachnoid hemorrhage with loss of consciousness of unspecified duration, initial encounter (3) Laceration of tongue Qualifiers: Encounter type: initial encounter Qualified Code(s): S01.512A - Laceration without foreign body of oral cavity, initial encounter (4) Mild neurocognitive disorder due to traumatic brain injury Qualifiers: Encounter type: initial encounter Qualified Code(s): S06.9X9A - Unspecified intracranial injury with loss of consciousness of unspecified duration, initial encounter; G31.84 - Mild cognitive impairment, so stated
--- NOTE | 2018-05-12 12:40 | P.HPCC ---
History of Present Illness Primary Care Physician: UNKNOWN Chief Complaint: Status post fall, generalized pain History of Present Illness: 62-year-old male presents via EMS for evaluation after a fall. The patient reportedly was standing on a roof when his feet became wrapped in plastic and he fell off of the roof, landing on his back. He remembers falling but there was loss of consciousness afterwards. He reports that he was 20 feet high. Reportedly his GCS was 14 when the fire department arrived however it was 15 when paramedics arrived. The patient is complaining of mild pain in his left lower back. He is otherwise asymptomatic. He denies headache, neck pain, dizziness, nausea, vomiting, chest pain, shortness of breath, abdominal pain, neck pain, pain in the extremities, numbness or tingling or weakness in extremities. Symptoms are mild, aggravated by fall. He is not on any blood thinning medications. He denies any significant past medical history. He has no other complaints at this time. Inpatient Certification: I certify that the inpatient services were ordered in accordance with Medicare regulations governing the order. This includes certification that hospital inpatient services are reasonable and necessary and in the case of services not specified as inpatient-only under 42 CFR 419.22(n), that they are appropriately provided as inpatient services in accordance to with the 2-midnight benchmark under 43 CFR 412.3(e) Estimated Total Length of Stay (Days): 3 Plans for Post Hospital Care: Other Review of Systems All other systems reviewed negative except as stated in HPI [facility] - History History Provided By: Patient - Medical History Medical History: Medical History (Last Reviewed 05/12/18 @ 07:59 by Abdi Long) Patient denies medical problems - Tobacco History Second Hand Smoke Exposure: No Tobacco Use In Past 30 Days: Yes Smoking Status: Current every day smoker Tobacco Type: Cigarettes - Alcohol History How Often Do You Have a Drink Containing Alcohol: 4 or more times a week - Substance Use History Substance History: No History of Abuse - Travel History Recent Travel in the [place] Within the Last 8 Weeks: No Recent Travel Out of the Country Within the Last 8 Weeks: No - Immunization History Tetanus Immunization: Unsure Medications and Allergies Active Medications: Active Medications Acetaminophen (Tylenol) 650 mg PO Q6H PRN PRN Reason: TEMPERATURE > 102 F Hydrocodone Bitart/Acetaminophen ([place] 5/325) 1 tab PO Q4H PRN PRN Reason: Pain 1-5 Hydrocodone Bitart/Acetaminophen ([place] 7.5/325) 1 tab PO Q4H PRN PRN Reason: Pain 6-10 Last Admin: 05/12/18 09:50 Dose: 1 tab Al Hydroxide/Mg Hydroxide (Milk Of Jose Alberto Hassan) 30 ml PO BID [facility] Last Admin: 05/12/18 09:50 Dose: 30 ml Bacitracin (Baciguent Oint) 1 applicatio TOPICAL BID [facility] Last Admin: 05/12/18 09:51 Dose: Not Given Chlorhexidine Gluconate (Chlorhexidine 2% Cloth) 3 pack TOPICAL DAILY@0400 [facility] Stop: 05/17/18 03:59 Last Admin: 05/12/18 03:44 Dose: 3 pack Chlorhexidine Gluconate (Chlorhexidine 2% Cloth) 3 pack TOPICAL DAILY@0400 PRN PRN Reason: Extra cloth needed Stop: 05/17/18 03:59 Docusate Sodium (Colace) 100 mg PO BID [facility] Last Admin: 05/12/18 09:50 Dose: 100 mg Enalaprilat (Vasotec Inj) 1.25 mg IV.PUSH Q8H PRN PRN Reason: Blood pressure > 180/95 Last Admin: 05/11/18 18:15 Dose: 1.25 mg Levetiracetam 500 mg/ Sodium (Chloride) 105 mls @ 400 mls/hr IV.SIG Q12H [facility] Last Infusion: 05/12/18 04:00 Dose: Infused Morphine Sulfate (Morphine Inj) 2 mg IV.PUSH Q3H PRN PRN Reason: BREAKTHROUGH PAIN Ondansetron HCl (Zofran Inj) 4 mg IV.PUSH Q6H PRN PRN Reason: NAUSEA OR VOMITING Pantoprazole Sodium (Protonix Inj) 40 mg IV.PUSH Q24H [facility] Last Admin: 05/11/18 17:21 Dose: 40 mg Sodium Chloride (Ns Flush) 2 ml IV.FLUSH PRN PRN PRN Reason: FLUSH AFTER USING IV ACCESS Sodium Chloride (Ns Flush) 2 ml IV.FLUSH UNSCH PRN PRN Reason: FLUSH AFTER USING IV ACCESS Allergies Allergy/AdvReac Type Severity Reaction Status Date / Time No Known Allergies Allergy Verified 05/11/18 13:43 Home Medications Medication Instructions Recorded Confirmed Type No Known Home Medications 05/11/18 05/11/18 History Results - Labs CBC & Chem 7: 05/12/18 04:26 05/12/18 04:26 Labs: Short CBC 05/11/18 05/12/18 Range/Units 13:50 04:26 WBC 4.8 8.4 D (4.0-11.0) th/mm3 Hgb 15.0 15.0 (13.0-17.0) gm/dL Hct 43.2 42.6 (39.0-51.0) % Plt Count 67 L 70 L (150-450) th/mm3 BMP 05/11/18 05/12/18 13:50 04:26 Sodium 143 142 Potassium 3.5 3.9 Chloride 109 H 106 Carbon Dioxide 25.4 28.2 BUN 20 H 18 Creatinine 1.07 1.01 Calcium 8.6 8.4 L Liver Function 05/12/18 Range/Units 04:26 Total Bilirubin 1.0 (0.2-1.0) mg/dL AST 111 H (15-37) U/L ALT 128 H (12-78) U/L Alkaline Phosphatase 106 (45-117) U/L Albumin 3.4 (3.4-5.0) g/dL - Imaging Impressions Abdomen/Pelvis CT 05/11/18 13:48 CONCLUSION: No acute findings in the abdomen and pelvis. Cervical Spine CT 05/11/18 13:48 CONCLUSION: No evidence of fracture. Multilevel degenerative findings. Chest CT 05/11/18 13:48 CONCLUSION: No acute findings in the chest. Chest X-Ray 05/11/18 13:48 CONCLUSION: No acute cardiopulmonary disease. Head CT 05/11/18 13:48 CONCLUSION: 1. Mild subarachnoid hemorrhage of the para midline frontal lobes bilaterally. 2. Possible 7 mm meningioma in the high right frontal region. . Lumbar Spine CT 05/11/18 13:48 CONCLUSION: 1. There is moderate thecal sac stenosis L3-4 and bilateral neural foraminal compromise at this level. 2. Neural foraminal compromise right L4-5, bilateral lateral recess compromise at this level and effacement of the anterior CSF space. Pelvis X-Ray 05/11/18 13:48 CONCLUSION: No evidence of fracture. Thoracic Spine CT 05/11/18 13:48 CONCLUSION: Degenerative changes at multiple levels with slight asymmetrical bulging discs left T9-10 without any significant compromise to the exiting nerve roots or the thecal sac. Head CT 05/12/18 08:00 CONCLUSION: 1. Resolution of minimal hemorrhage in the parasagittal region of the left frontal lobe. 2. Otherwise stable exam without evidence of acute infarct, edema or mass effect. . Exam Vital signs: Vital Signs 05/11/18 13:49 05/11/18 13:51 05/11/18 17:40 Temperature 98.6 F Pulse Rate 87 94 H Respiratory Rate 23 21 Blood Pressure 162/93 H 169/104 H Pulse Oximetry 95 95 99 05/11/18 18:01 05/11/18 18:02 05/11/18 18:06 Temperature 99 F Pulse Rate 94 H Respiratory Rate Blood Pressure 201/118 H 207/108 H Pulse Oximetry 95 96 05/11/18 18:19 05/11/18 18:34 05/11/18 18:49 Temperature Pulse Rate 95 H 91 H 97 H Respiratory Rate 28 H 29 H 36 H Blood Pressure 204/111 H 186/118 H 198/115 H Pulse Oximetry 96 95 96 05/11/18 19:00 05/11/18 19:04 05/11/18 19:19 Temperature Pulse Rate 100 H 85 92 H Respiratory Rate 43 H 22 32 H Blood Pressure 171/97 H 171/100 H Pulse Oximetry 99 94 L 05/11/18 19:34 05/11/18 19:39 05/11/18 19:42 Temperature Pulse Rate 92 H 92 H 87 Respiratory Rate 28 H 21 21 Blood Pressure 179/106 H 192/102 H 175/99 H Pulse Oximetry 96 93 L 95 05/11/18 20:00 05/11/18 20:14 05/11/18 20:41 Temperature 97.9 F Pulse Rate 93 H 91 H 107 H Respiratory Rate 21 20 21 Blood Pressure 168/88 H 179/103 H 138/77 Pulse Oximetry 94 L 94 L 93 L 05/11/18 21:00 05/11/18 22:00 05/11/18 23:00 Temperature Pulse Rate 102 H 94 H 97 H Respiratory Rate 21 22 21 Blood Pressure 127/74 118/70 130/70 Pulse Oximetry 93 L 96 100 05/11/18 23:12 05/11/18 23:47 05/12/18 00:00 Temperature 99.0 F Pulse Rate 90 Respiratory Rate 15 22 Blood Pressure 128/80 Pulse Oximetry 96 96 05/12/18 01:00 05/12/18 02:00 05/12/18 03:00 Temperature Pulse Rate 91 H 84 82 Respiratory Rate 22 17 17 Blood Pressure 131/77 126/78 119/84 Pulse Oximetry 96 97 98 05/12/18 04:00 05/12/18 05:00 05/12/18 06:00 Temperature 99.1 F Pulse Rate 89 79 79 Respiratory Rate 15 17 14 Blood Pressure 154/84 H 137/83 133/78 Pulse Oximetry 98 99 98 05/12/18 07:00 05/12/18 08:00 05/12/18 09:00 Temperature 99.4 F Pulse Rate 79 89 86 Respiratory Rate Blood Pressure 131/80 159/99 H 178/105 H Pulse Oximetry 98 99 05/12/18 09:48 05/12/18 10:00 05/12/18 11:00 Temperature Pulse Rate 89 83 82 Respiratory Rate Blood Pressure 162/82 H 155/80 H 142/81 H Pulse Oximetry 93 L 05/12/18 12:00 Temperature 99.7 F H Pulse Rate 75 Respiratory Rate 14 Blood Pressure 119/67 Pulse Oximetry Intake & Output 05/11/18 05/12/18 05/12/18 18:59 06:59 18:59 Intake Total 105 / 105 305 / 305 Output Total 500 / 500 Balance 105 / 105 -195 / -195 Weight 68.492 kg 66.2 kg Intake: IV 105 / 105 105 / 105 Keppra Inj 500 MG In NS Inj 100 105 / 105 105 / 105 ML @ 400 mls/hr IV.SIG Q12H [facility] Rx#:[id number] Oral 200 / 200 Output: Urine 500 / 500 Other: Weight On Admission 66.2 kg - Constitutional no acute distress - Routine HEENT Exam Head: Present: normocephalic, atraumatic Eye: Present: EOMI, PERRL ENT: Present: mucous membranes dry - Routine Neck Exam Present: trachea midline. Absent: tenderness, swelling - Routine Chest/Breast/Axilla Exam Chest wall: Absent: tenderness - Routine Respiratory Exam Present: CTA bilaterally - Routine Cardiovascular Exam Present: RRR - Routine Abdominal Exam Present: soft. Absent: tenderness, distended - Routine Extremities Exam Absent: cyanosis, clubbing, edema - Routine Skin Exam Present: dry, warm - Routine Neurological Exam Present: alert, oriented X3, CN II-XII intact. Absent: sensory deficit, motor deficit Caprini VTE Risk Assessment Caprini VTE Risk Assessment: Moderate/High Risk (score >= 2) VTE Pharmacological Exception Reason: Hemorrhage Caprini Risk Assessment Model: Point Value = 1 Point Value = 2 Point Value = 3 Point Value = 5 Age 41-60 Minor surgery BMI > 25 kg/m2 Swollen legs Varicose veins or History of unexplained or recurrent spontaneous Oral contraceptives or hormone replacement Sepsis (< 1 month) Serious lung disease, including pneumonia (< 1 month) Abnormal pulmonary function Acute myocardial infarction Congestive heart failure (< 1 month) History of inflammatory bowel disease Medical patient at bed rest Age 61-74 Arthroscopic surgery Major open surgery (> 45 min) Laparoscopic surgery (> 45 min) Malignancy Confined to bed (> 72 hours) Immobilizing plaster cast Central venous access Age >= 75 History of VTE Family history of VTE Factor V Leiden Prothrombin [id number] Lupus anticoagulant Anticardiolipin antibodies Elevated serum homocysteine Heparin-induced thrombocytopenia Other congenital or acquired thrombophilia Stroke (< 1 month) Elective arthroplasty Hip, pelvis, or leg fracture Acute spinal cord injury (< 1 month) Prophylaxis Regimen: Total Risk Factor Score Risk Level Prophylaxis Regimen 0-1 Low Early ambulation 2 Moderate Order ONE of the following: *Sequential Compression Device (SCD) *Heparin 5000 units SQ BID 3-4 Higher Order ONE of the following medications: *Heparin 5000 units SQ TID *Enoxaparin/Lovenox 40 mg SQ daily (WT < 150 kg, CrCl > 30 mL/min) *Enoxaparin/Lovenox 30 mg SQ daily (WT < 150 kg, CrCl > 10-29 mL/min) *Enoxaparin/Lovenox 30 mg SQ BID (WT < 150 kg, CrCl > 30 mL/min) AND/OR *Sequential Compression Device (SCD) 5 or more Highest Order ONE of the following medications: *Heparin 5000 units SQ TID (Preferred with Epidurals) *Enoxaparin/Lovenox 40 mg SQ daily (WT < 150 kg, CrCl > 30 mL/min) *Enoxaparin/Lovenox 30 mg SQ daily (WT < 150 kg, CrCl > 10-29 mL/min) *Enoxaparin/Lovenox 30 mg SQ BID (WT < 150 kg, CrCl > 30 mL/min) AND *Sequential Compression Device (SCD) Assessment and Plan - Assessment and Plan Plan: Admit to trauma ICU for continuous hemodynamic monitoring and serial neurologic exams Repeat head CT in the morning to track his his subarachnoid hemorrhage Neurosurgery has been consulted and following the patient H&P: Quality - VTE Deep Vein Thrombosis/Pulmonary Embolism Present on Admission: No
[2018-05-12] MEDS: Pantoprazole Inj 40 MG Vial IV.PUSH SCH (16:00)
[2018-05-13 03:24] LABS: Baso % (Auto) 0.6 % (0.0-2.0); Eos # (Auto) 0.1 th/mm3 (0.0-0.4); Eos % (Auto) 1.5 % (0.0-4.0); Hematocrit 39.2 % (39.0-51.0); Hemoglobin 13.5 gm/dL (13.0-17.0); Lymph # (Auto) 1.3 th/mm3 (1.0-4.8); Lymph % (Auto) 18.7 % (9.0-44.0); Mean Corpuscular HGB Conc 34.5 % (32.0-36.0); Mean Corpuscular Hemoglobin 33.4 pg (27.0-34.0); Mean Corpuscular Volume 96.8 fL (80.0-100.0); Mean Platelet Volume 8.9 fL (7.0-11.0); Mono # (Auto) 0.4 th/mm3 (0.0-0.9); Mono % (Auto) 5.8 % (0.0-8.0); Neut # (Auto) 4.9 th/mm3 (1.8-7.7); Neut % (Auto) 73.4 % (16.0-70.0); Platelet Count 73 th/mm3 (150-450); Red Blood Count 4.04 mil/mm3 (4.50-5.90); White Blood Count 6.7 th/mm3 (4.0-11.0)
[2018-05-13 03:38] LABS: Calcium 8.1 mg/dL (8.5-10.1); Potassium 3.9 meq/L (3.5-5.1)
[2018-05-13] MEDS: Chlorhexidine Gluconate 2% 1 Pack (2 Cloths) TOPICAL SCH (04:09)
[2018-05-13] MEDS: Docusate Sodium 100 MG Capsule PO SCH (07:59)
[2018-05-13 08:12] VITALS: RESP 20
--- NOTE | 2018-05-13 12:14 | P.DS ---
Date of admission: 05/11/18 15:23 Primary care physician: UNKNOWN Attending physician on discharge: Dick Funez Anticipated date of discharge: 05/13/18 Brief History from admission: 62-year-old male presents via EMS for evaluation after a fall. The patient reportedly was standing on a roof when his feet became wrapped in plastic and he fell off of the roof, landing on his back. He remembers falling but there was loss of consciousness afterwards. He reports that he was 20 feet high. Reportedly his GCS was 14 when the fire department arrived however it was 15 when paramedics arrived. The patient is complaining of mild pain in his left lower back. He is otherwise asymptomatic. He denies headache, neck pain, dizziness, nausea, vomiting, chest pain, shortness of breath, abdominal pain, neck pain, pain in the extremities, numbness or tingling or weakness in extremities. Symptoms are mild, aggravated by fall. He is not on any blood thinning medications. He denies any significant past medical history. He has no other complaints at this time. DS: Diagnosis - Discharge Diagnosis (1) Traumatic subarachnoid hemorrhage Status: Acute (2) Thrombocytopenia Status: Acute (3) Laceration of tongue Status: Acute (4) Mild neurocognitive disorder due to traumatic brain injury Status: Acute DS: Medications - Discharge Medications Prescriptions: hydrocodone-acetaminophen 1 tab PO Q4H PRN 3 Days #18 tab PRN Reason: Pain levetiracetam [Keppra] 500 mg PO BID 5 Days #10 tab DS: Summary Hospital Course: [place]: This is a 62-year-old male who presents via EMS for evaluation after a fall. The patient reportedly was standing on a roof when his feet became wrapped in plastic and he fell off of the roof, landing on his back. He remembers falling but there was loss of consciousness afterwards. He reports that he was 20 feet high. Reportedly his GCS was 14 when the fire department arrived however it was 15 when paramedics arrived. The patient is complaining of mild pain in his left lower back. He is otherwise asymptomatic. He denies headache, neck pain, dizziness, nausea, vomiting, chest pain, shortness of breath, abdominal pain, neck pain, pain in the extremities, numbness or tingling or weakness in extremities. Symptoms are mild, aggravated by fall. He is not on any blood thinning medications. He denies any significant past medical history. He has no other complaints at this time. INJURIES: Bilateral SAH Tongue lac (sutures) *Meningioma (7mm) high right frontal PMHx: Smoker Procedures: Consults: Neurosurgery. Neuropsych. Case management. The patient is now tolerating a po diet. Requesting a mechanical soft/liquids do to tongue laceration. Eating and drinking is painful. Pain is being managed well with PO pain medications, and patient is being a provided with a script for pain meds upon discharge. [This patient will be prescribed narcotic pain medications due to his traumatic injuries. The patient has a normal physiological response to severe traumatic injuries and surgery. He will need acute pain management with prescribed narcotic treatment. The [employer] prescription drug monitoring program database has been queried.] (NO driving while taking narcotic pain medication enforced to patient.) Pt is having regular bowel movements, and have recommended to patient to continue with stool softeners while taking narcotic pain medications to prevent constipation. Pt has been participating in PT and OT while admitted at [facility] and has been ambulating with their assistance and independently. No home PT needs. All follow up appointments have been provided and discussed with the patient. It is recommended that the patient keeps all his follow up appointments for continued recovery. Patient's condition and plan of care discussed with collaborating trauma surgeon. He is agreeable to plan for discharge today. Therefore, the patient is stable to be safely discharged home from a trauma surgery standpoint. Thank you for allowing us to participate in his care. We wish Selvin the best in his recovery. Bilateral SAH L3-4 and bilateral neural foraminal compromise Neurosurgery consulted and assisting in management and care Supportive care 05/12: CT brain shows resolution of minimal hemorrhage. Stable. Collaborated with HUBERT Tafoya, and he is in agreement that the patient is clear for discharge Serial neuro checks CT brain for any change in neurological status Seizure precautions Seizure prophylaxis with Keppra Pain management Encourage out of bed PT and OT ordered Bowel regimen SCD's for DVT prophylaxis Neuropsych consulted and assisting in management and care Tongue lac (sutures) Supportive care Maintain good oral care Mechanical soft diet for comfort and ease Pain management - Time Spent with Patient Total time spent providing and/or coordinating discharge services: Greater than 30 minutes - Quality: VTE Deep Vein Thrombosis/Pulmonary Embolism Present on Admission: No Exam Vital signs: Vital Signs 05/12/18 13:00 05/12/18 13:59 05/12/18 14:00 Temperature Pulse Rate 84 97 H Respiratory Rate Blood Pressure 176/85 H 176/85 H 174/97 H Pulse Oximetry 05/12/18 16:00 05/12/18 20:00 05/12/18 23:51 Temperature 97.5 F L 99.3 F 100.9 F H Pulse Rate 82 85 75 Respiratory Rate 18 18 18 Blood Pressure 150/79 H 133/77 136/83 Pulse Oximetry 96 94 L 92 L 05/13/18 04:00 05/13/18 08:00 05/13/18 09:00 Temperature 99.6 F 98.8 F Pulse Rate 76 80 80 Respiratory Rate 18 20 Blood Pressure 173/90 H 188/105 H Pulse Oximetry 92 L 92 L Intake & Output 05/12/18 05/13/18 05/13/18 18:59 06:59 18:59 Intake Total 105 / 105 105 / 105 Balance 105 / 105 105 / 105 Weight 66.2 kg Intake: IV 105 / 105 105 / 105 Keppra Inj 500 MG In NS Inj 100 105 / 105 105 / 105 ML @ 400 mls/hr IV.SIG Q12H ANGELO Rx#:[id number] Other: # Voids 2 Date of Last Bowel Movement 05/11/18 Narrative: GENERAL: This is a 62-year-old male sitting up in bed. No distress noted. SKIN: Warm and dry. Tongue laceration noted. HEAD: Atraumatic. Normocephalic. EYES: PERRLA ENT: No nasal bleeding or discharge. Mucous membranes pink and moist. NECK: Trachea midline. No JVD. CARDIOVASCULAR: Regular rate and rhythm. RESPIRATORY: No accessory muscle use. Lungs are clear to auscultation. Breath sounds equal bilaterally. No distress or dyspnea. GASTROINTESTINAL: BS + x 4 quads. Abdomen soft, non-tender, nondistended. MUSCULOSKELETAL: Extremities without cyanosis, or edema. + peripheral pulses x 4 extremities. Warm with good capillary refill and sensation. MAEW. NEUROLOGICAL: Awake and alert x 3. Normal speech and pattern. Results Procedures completed during hospitalization: . Labs on day of discharge: Labs from last 24 hours 05/13/18 05/13/18 03:13 03:13 CBC w Diff Auto diff final WBC 6.7 RBC 4.04 L Hgb 13.5 Hct 39.2 MCV 96.8 MCH 33.4 MCHC 34.5 RDW 12.0 Plt Count 73 L MPV 8.9 Prelim Diff (Auto) [employer] Neut % (Auto) 73.4 H Lymph % (Auto) 18.7 Wells % (Auto) 5.8 Eos % (Auto) 1.5 Baso % (Auto) 0.6 Neut # (Auto) 4.9 Lymph # (Auto) 1.3 Wells # (Auto) 0.4 Eos # (Auto) 0.1 Baso # (Auto) 0.0 WBC Differential . Differential Comment . Sodium 141 Potassium 3.9 Chloride 107 Carbon Dioxide 29.0 Anion Gap 5 BUN 16 Creatinine 0.99 Estimated GFR 77 L Random Glucose 118 H Calcium 8.1 L - Impressions ITS Impressions Abdomen/Pelvis CT 05/11/18 13:48 CONCLUSION: No acute findings in the abdomen and pelvis. Cervical Spine CT 05/11/18 13:48 CONCLUSION: No evidence of fracture. Multilevel degenerative findings. Chest CT 05/11/18 13:48 CONCLUSION: No acute findings in the chest. Chest X-Ray 05/11/18 13:48 CONCLUSION: No acute cardiopulmonary disease. Lumbar Spine CT 05/11/18 13:48 CONCLUSION: 1. There is moderate thecal sac stenosis L3-4 and bilateral neural foraminal compromise at this level. 2. Neural foraminal compromise right L4-5, bilateral lateral recess compromise at this level and effacement of the anterior CSF space. Pelvis X-Ray 05/11/18 13:48 CONCLUSION: No evidence of fracture. Thoracic Spine CT 05/11/18 13:48 CONCLUSION: Degenerative changes at multiple levels with slight asymmetrical bulging discs left T9-10 without any significant compromise to the exiting nerve roots or the thecal sac. Head CT 05/12/18 08:00 CONCLUSION: 1. Resolution of minimal hemorrhage in the parasagittal region of the left frontal lobe. 2. Otherwise stable exam without evidence of acute infarct, edema or mass effect. . Discharge Plan - Discharge Disposition Patient Disposition: 01 Discharge Home - Discharge Condition Condition: Stable - Discharge Order Discharge Orders: Discharge Order (Routine); Ordered 05/13/18 Ordered By: Hamida Doll - Discharge Details Anticipated Discharge Date: 05/13/18 - Physicians Team Primary Care Provider: UNKNOWN, Attending Provider: Paul Jade Other Providers: Dick Funez MD ; Paul Jade MD ; [employer] [employer] ; Horacio Mars MD ; Hamida Doll ARNP ; Russel Paz MD ; Carmen Feng MD ; Asif Liang ARNP ; Gely Armenta MD ; Miguel Torres, PhD ; Moris High MD
[2018-05-13 12:40] VITALS: BP 172/102; PULSE 69; TEMP 98.9; O2SAT 94
[2018-05-13] MEDS: Pantoprazole Inj 40 MG Vial IV.PUSH SCH (17:18)
== END 2018-05-13 17:18 | disposition home or self-care (01) ==
LOC: NEPE 13:37 → NEDA 15:23 → N03 17:59 → N05 05-12 15:05
PROVIDERS: ADMIT Surgery; ATTEND Surgery